=== PATIENT | female | born 1995 | race Caucasian/White ===

== ENCOUNTER 2017-08-05 01:11 | Emergency (ER) | payer OTHER ==
[~2017-08-05] VITALS: Ht 167.6 cm; Wt 65.0 kg
[2017-08-05 01:51] VITALS: BP 100/56
== END 2017-08-05 02:12 | disposition left against medical advice (07) ==
LOC: ER 01:11
DX: Z04.71 Encounter for examination and observation following alleged adult physical abuse (principal); R51 Headache; Z53.21 Procedure and treatment not carried out due to patient leaving prior to being seen by health care provider